=== PATIENT | male | born 1960 | race Hispanic/Latino ===

== ENCOUNTER 2019-10-14 07:39 | Emergency (ER) | payer SELFPAY ==
[2019-10-14] MEDS ORDERED: ZIPRASIDONE MESYLATE 20 MG VIAL IM ONE ×2 (13:44→14:26)
[2019-10-14] MEDS ORDERED: LORazepam 2 MG/ML VIAL ONE (13:45)
--- NOTE | 2019-10-14 14:04 | Emergency Department Report ---
ED Psych HPI - General Chief Complaint: Psych Stated Complaint: MH EVAL Time Seen by Provider: 10/14/19 13:44 Source: patient Mode of arrival: Ambulatory - History of Present Illness Initial Comments: 59-year-old male brought in by police for evaluation. Patient was apparently t hreatening his roommate. Patient is aggressive and yelling, stating "Stop asking me dumbass questions!" He denies SI and HI. Unable to obtain any other information from this patient. MD Complaint: other -: This morning Treatments Prior to Arrival: none - Related Data Home Medications Medication Instructions Recorded Confirmed Last Taken No Known Home Medications [No 10/15/19 10/15/19 Unknown Reported Home Medications] Allergies Allergy/AdvReac Type Severity Reaction Status Date / Time No Known Allergies Allergy Unverified 10/14/19 08:36 ED Review of Systems ROS: Stated complaint: MH EVAL Other details as noted in HPI Comment: Unobtainable due to pts medical conditions ED Past Medical Hx - Medications Home Medications: Home Medications Medication Instructions Recorded Confirmed Last Taken Type No Known Home Medications [No 10/15/19 10/15/19 Unknown History Reported Home Medications] ED Physical Exam - General Limitations: No Limitations General appearance: alert - Head Head exam: Present: atraumatic, normocephalic - Eye Eye exam: Present: normal appearance - ENT ENT exam: Present: mucous membranes moist - Neck Neck exam: Present: normal inspection - Respiratory Respiratory exam: Present: normal lung sounds bilaterally. Absent: respiratory distress - Cardiovascular Cardiovascular Exam: Present: normal rhythm, tachycardia - GI/Abdominal GI/Abdominal exam: Absent: distended - Extremities Exam Extremities exam: Present: normal inspection - Neurological Exam Neurological exam: Present: alert - Psychiatric Psychiatric exam: Present: agitated - Skin Skin exam: Present: warm, dry, intact, normal color ED Course Vital Signs 10/14/19 10/14/19 10/14/19 08:31 08:39 15:12 Temperature 98.9 F 98.9 F Pulse Rate 113 H 115 H 65 Respiratory 18 18 16 Rate Blood Pressure 223/138 Blood Pressure 224/113 116/63 [Right] O2 Sat by Pulse 100 100 100 Oximetry 10/14/19 10/14/19 10/15/19 17:34 20:13 02:00 Temperature 98.1 F 97.2 F L Pulse Rate 56 L 62 57 L Respiratory 17 16 16 Rate Blood Pressure Blood Pressure 152/74 145/82 135/63 [Right] O2 Sat by Pulse 96 97 97 Oximetry 10/15/19 10/15/19 10/15/19 09:24 09:28 12:43 Temperature 97.6 F 97.6 F Pulse Rate 71 76 Respiratory 20 18 18 Rate Blood Pressure 158/91 Blood Pressure 158/91 [Right] O2 Sat by Pulse 99 100 Oximetry 10/15/19 10/15/19 10/15/19 17:17 21:08 21:11 Temperature 98.3 F 97.6 F Pulse Rate 78 91 H Respiratory 18 16 16 Rate Blood Pressure Blood Pressure 140/86 169/101 [Right] O2 Sat by Pulse 99 100 Oximetry 10/16/19 10/16/19 10/16/19 01:15 08:01 14:26 Temperature 97.5 F L 98.4 F 97.8 F Pulse Rate 72 74 81 Respiratory 18 18 20 Rate Blood Pressure Blood Pressure 166/90 152/91 149/94 [Right] O2 Sat by Pulse 100 98 100 Oximetry 10/16/19 10/17/19 10/17/19 19:45 01:30 08:08 Temperature 97.9 F 97.9 F 98.3 F Pulse Rate 65 66 56 L Respiratory 18 18 18 Rate Blood Pressure Blood Pressure 145/76 138/77 164/86 [Right] O2 Sat by Pulse 100 100 99 Oximetry 10/17/19 10/18/19 10/18/19 16:04 01:52 07:55 Temperature 97.5 F L 98.2 F 98.4 F Pulse Rate 67 64 76 Respiratory 20 18 20 Rate Blood Pressure Blood Pressure 164/98 145/82 145/102 [Right] O2 Sat by Pulse 100 99 99 Oximetry 10/18/19 10/18/19 09:16 20:00 Temperature 98.8 F Pulse Rate 75 Respiratory 18 16 Rate Blood Pressure Blood Pressure 139/77 [Right] O2 Sat by Pulse 95 100 Oximetry ED Medical Decision Making - Lab Data Result diagrams: 10/14/19 14:02 10/16/19 12:57 - EKG Data -: EKG Interpreted by Mi EKG shows normal: sinus rhythm, axis, intervals, QRS complexes Rate: normal - EKG Data Interpretation: other (T wave inversions inferolateral leads) - Medical Decision Making Pt medically clear for mental health evaluation. Critical care attestation.: If time is entered above; I have spent that time in minutes in the direct care of this critically ill patient, excluding procedure time. ED Disposition Clinical Impression: Schizoaffective disorder Disposition: [id number]/[facility]-65 PSY HOSP/PSY UNIT Is pt being admited?: No Condition: Stable Referrals: PRIMARY CARE, [Primary Care Provider] - 3-5 Days
[2019-10-14] MEDS ORDERED: LORazepam 2 MG/ML VIAL IM ONE (14:27)
[2019-10-14 14:34] LABS: Basophils % (Auto) 0.3 % (0.0-1.8); Eosinophils % (Auto) 0.3 % (0.0-4.3); Hematocrit 41.1 % (35.5-45.6); Hemoglobin 13.1 gm/dl (11.8-15.2); Lymphocytes # (Auto) 1.7 K/mm3 (1.2-5.4); Lymphocytes % (Auto) 24.7 % (13.4-35.0); Mean Corpuscular HGB Conc 32 % (32-34); Mean Corpuscular Volume 81 fl (84-94); Monocytes # (Auto) 0.5 K/mm3 (0.0-0.8); Monocytes % (Auto) 7.3 % (0.0-7.3); Platelet Count 463 K/mm3 (140-440); Red Blood Count 5.06 M/mm3 (3.65-5.03); Red Cell Distribution Width 14.9 % (13.2-15.2)
[2019-10-14] MEDS ORDERED: POTASSIUM CHLORIDE ER 20 MEQ TAB PO ONE (15:26)
[2019-10-15] MEDS ORDERED: ZIPRASIDONE MESYLATE 20 MG VIAL IM ONE ×2 (11:34→11:35)
[2019-10-15] MEDS ORDERED: POTASSIUM CHLORIDE ER 20 MEQ TAB PO ONE (12:32)
--- NOTE | 2019-10-15 14:46 | Consultation ---
History of Present Illness - Reason for Consult Consult date: 10/15/19 Reason for consult: MHE Requesting physician: DEBORAH LOERA - Chief Complaint Chief complaint: Aggression - History of Present Psychiatric Illness Per ED Provider: 59-year-old male brought in by police for evaluation. Patient was apparently threatening his roommate. Patient is aggressive and yelling, stating "Stop asking me dumbass questions!" He denies SI and HI. Unable to obtain any other information from this patient. PSYCH HPI Patient is a 39 year old homeless, unemployed and single Male who is denying a past psychiatric history and has no known past medical history presents today to the ER by the PD for wandering. Pt says he was unaware of events leading him here, says he does not even know what type of facility this is. Patients endorses hearing voices with no specific detail as to what he hears but says he is not hearing any at the moment. 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 He reports loosing mum and sister some years ago and had tried to commit suicide at that time but none since then. Patient describes mood today as "I dont know", denies SI or HI. PAST PSYCHIATRIC HISTORY unable to complete exam due to mental state PAST MEDICAL HISTORY: unable to complete exam due to mental state Family Psychiatric History: None reported or documented SOCIAL HISTORY unable to complete exam due to mental state REVIEW OF SYSTEMS unable to complete exam due to mental state MENTAL STATUS EXAMINATION General Appearance and Behavior: Age appropriate, good hygiene, wearing appropriate clothes,poor eye contact, uncooperative and irritable with questioning. Cooperation: withdrawn and irritated Psychomotor Behavior: psychomotor agitation Mood: n/a Affect and affective range: angry, aggressive Thought Process: Fluent/Logical Thought Content: word salads, loose association Speech: rambling, Intellectual Functioning: Average Suicidal Ideation: Denies Homicidal Ideation: Denies Impulse Control: impaired Insight and Judgment: Poor insight and judgment Memory: Unaccesible Attention: Normal Orientation: Alert, oriented RECOMMENDATIONS MEDICATIONS: continue home meds Risks, benefits and alternatives of medications discussed with the patient, questions answered and consent obtained from patient. PSYCHOTHERAPY: Supportive psychotherapy provided MEDICAL: Per primary team. DELIRIUM PRECAUTIONS: Please re-orient patient frequently, keep lights on during the day, and minimize benzodiazepines and opiates as these medications could worsen patient's confusion. STNA: Per medical team DISPOSITION: no indication for acute inpatient psychiatric hospitalization at this time, will observe for mood stability. LEGAL STATUS: 1013 FOLLOW-UP: Will follow Thank you for the consult. Please contact with any questions and/or concerns. Medications and Allergies Allergies Allergy/AdvReac Type Severity Reaction Status Date / Time No Known Allergies Allergy Unverified 10/14/19 08:36 Home Medications Medication Instructions Recorded Confirmed Last Taken Type No Known Home Medications [No 10/15/19 10/15/19 Unknown History Reported Home Medications] Mental Status Exam - Vital signs Last Vital Signs Temp 97.6 F 10/15/19 12:43 Pulse 76 10/15/19 12:43 Resp 18 10/15/19 12:43 BP 158/91 10/15/19 12:43 Pulse Ox 100 10/15/19 12:43 Results Result Diagrams: 10/14/19 14:02 10/14/19 14:02 Abnormal lab results 10/14/19 10/14/19 Range/Units 14:02 14:02 Salicylates < 0.3 L (2.8-20.0) mg/dL Acetaminophen < 5.0 L (10.0-30.0) ug/mL All other labs normal.
[2019-10-15] MEDS ORDERED: risperiDONE 0.25 MG TAB PO SCH (15:00)
[2019-10-15 15:02] LABS: Bilirubin,Urine NEG (Negative); Blood,Urine NEG (Negative); Color,Urine Colorless (Yellow); Protein,Urine <15 mg/dL mg/dL (Negative); RBC,Urine < 1.0 /HPF (0.0-6.0); Urobilinogen,Urine < 2.0 mg/dL (<2.0)
[2019-10-15 15:17] LABS: Amphetamine Screen,Urine PRESUMPTIVE NEGATIVE; Benzodiazepines Screen,Urine PRESUMPTIVE NEGATIVE; Cannabinoid Screen,Urine PRESUMPTIVE NEGATIVE; Cocaine Screen,Urine PRESUMPTIVE NEGATIVE; Methadone Screen,Urine PRESUMPTIVE NEGATIVE; Opiate Screen,Urine PRESUMPTIVE NEGATIVE
[2019-10-15] MEDS: risperiDONE 1 MG TAB PO SCH ×2 (15:52→22:26)
[2019-10-16] MEDS ORDERED: POTASSIUM CHLORIDE ER 20 MEQ TAB PO ONE (09:22)
[2019-10-16] MEDS: risperiDONE 1 MG TAB PO SCH (09:56)
[2019-10-16] MEDS ORDERED: LORazepam 2 MG/ML VIAL IM ONE (11:57)
[2019-10-16] MEDS ORDERED: ZIPRASIDONE MESYLATE 20 MG VIAL IM ONE (11:57)
[2019-10-16 13:44] LABS: BUN/Creatinine Ratio 10; Blood Urea Nitrogen 12 mg/dL (9-20); Calcium 9.5 mg/dL (8.4-10.2); Hemolysis Index 120
--- NOTE | 2019-10-16 14:13 | Cat Scan Report ---
CT head/brain wo con INDICATION / CLINICAL INFORMATION: 59 years Male; AMS. TECHNIQUE: Routine CT head without contrast. All CT scans at this location are performed using CT dos e reduction for ALARA by means of automated exposure control. COMPARISON: None. FINDINGS: BRAIN / INTRACRANIAL CONTENTS: The motion degrades image quality. 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 More focal findings are seen p osteriorly on the right. There appears be mild cerebral white matter disease most consistent with microvascular angiopathy. Th e motion obscures evaluation of the vertex at. However, there is mild cerebral atrophy with associate d mild prominence of the ventricular system. There is no definitive CT evidence of acute intracranial hemorrhage involving the visualized brain. ORBITS: No significant abnormality of visualized orbits. SINUSES / MASTOIDS: No significant abnormality in the visualized paranasal sinuses or mastoid air james ls. CRANIOCERVICAL JUNCTION: No significant abnormality. ADDITIONAL FINDINGS: None. IMPRESSION: 1. The motion degrades image quality. 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 2. There is no definitive CT evidence of acute intracranial hemorrhage. Signer Name: Jarvis Ta MD Signed: 10/16/2019 2:08 PM Workstation Name: [id number]
[2019-10-16] MEDS ORDERED: PALIPERIDONE PALMITATE 234 MG/1.5 ML SYRINGE IM ONE (15:38)
--- NOTE | 2019-10-16 15:39 | Progress Note ---
Subjective - Reason for Consult Consult date: 10/16/19 Reason for consult: MHE Requesting physician: DEBORAH LOERA - Chief Complaint Chief complaint: Psych Progress Patient seen today, awake, angry and refuses to let blood be drawn to recheck potassium. Patient is incoherent, disorganized with rambling speech REVIEW OF SYSTEMS unable to complete exam due to mental state MENTAL STATUS EXAMINATION General Appearance and Behavior: Age appropriate, good hygiene, wearing appropriate clothes,poor eye contact, uncooperative and irritable with questio hu. Cooperation: withdrawn and irritated Psychomotor Behavior: psychomotor agitation Mood: n/a Affect and affective range: angry, aggressive Thought Process: Fluent/Logical Thought Content: word salads, loose association Speech: rambling, Intellectual Functioning: Average Suicidal Ideation: Denies Homicidal Ideation: Denies Impulse Control: impaired Insight and Judgment: Poor insight and judgment Memory: Unaccesible Attention: Normal Orientation: Alert, oriented RECOMMENDATIONS MEDICATIONS: continue current meds. Will start on Invega shot today Risks, benefits and alternatives of medications discussed with the patient, questions answered and consent obtained from patient. PSYCHOTHERAPY: Supportive psychotherapy provided MEDICAL: Per primary team. DELIRIUM PRECAUTIONS: Please re-orient patient frequently, keep lights on during the day, and minimize benzodiazepines and opiates as these medications could worsen patient's confusion. 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 LEGAL STATUS: 1013 FOLLOW-UP: Will follow Thank you for the consult. Please contact with any questions and/or concerns. Mental Status Exam - Vital signs Last Vital Signs Temp 97.8 F 10/16/19 14:26 Pulse 81 10/16/19 14:26 Resp 20 10/16/19 14:26 BP 149/94 10/16/19 14:26 Pulse Ox 100 10/16/19 14:26
[2019-10-16] MEDS ORDERED: metFORMIN 500 MG TAB ONE (17:46)
[2019-10-16] MEDS: VALPROIC ACID 250 MG/5 ML ORAL LIQD PO SCH ×2 (18:13→22:51)
--- NOTE | 2019-10-17 13:17 | Progress Note ---
Subjective - Reason for Consult Consult date: 10/17/19 Reason for consult: MHE Requesting physician: DEBORAH LOERA - Chief Complaint Chief complaint: Psych Progress Patient appears calm today after been started on Invega yesterday, says he allowed blood to drawn, admits to being angry yesterday and does not know why, denies anger at the moment. Patient states he wants the next food, wants to know the time, still a disorganized but calm REVIEW OF SYSTEMS unable to complete exam due to mental state MENTAL STATUS EXAMINATION General Appearance and Behavior: Age appropriate, good hygiene, wearing appropriate clothes, fair eye contact, cooperative and polite with questioning. Cooperation: Engaged but slightly withdrawn Psychomotor Behavior: No psychomotor agitation Mood: n/a Affect and affective range: angry, aggressive Thought Process: Fluent/Logical Thought Content: word salads, loose association Speech: rambling, Intellectual Functioning: Average Suicidal Ideation: Denies Homicidal Ideation: Denies Impulse Control: impaired Insight and Judgment: Poor insight and judgment Memory: Unaccessible Attention: Normal Orientation: Alert, oriented RECOMMENDATIONS MEDICATIONS: continue current meds. STARTED ON INVEGA ON 10/17/2019 Risks, benefits and alternatives of medications discussed with the patient, questions answered and consent obtained from patient. PSYCHOTHERAPY: Supportive psychotherapy provided MEDICAL: Per primary team. DELIRIUM PRECAUTIONS: Please re-orient patient frequently, keep lights on during the day, and minimize benzodiazepines and opiates as these medications could worsen patient's confusion. 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 LEGAL STATUS: 1013 FOLLOW-UP: Will follow Thank you for the consult. Please contact with any questions and/or concerns. Mental Status Exam - Vital signs Last Vital Signs Temp 98.3 F 10/17/19 08:08 Pulse 56 L 10/17/19 08:08 Resp 18 10/17/19 08:08 BP 164/86 10/17/19 08:08 Pulse Ox 99 10/17/19 08:08
[2019-10-17] MEDS: VALPROIC ACID 250 MG/5 ML ORAL LIQD PO SCH ×2 (13:36→22:55)
[2019-10-17] MEDS ORDERED: amLODIPine 5 MG TAB PO ONE (18:03)
[2019-10-18] MEDS: VALPROIC ACID 250 MG/5 ML ORAL LIQD PO SCH ×3 (10:05→22:03)
--- NOTE | 2019-10-18 13:48 | Progress Note ---
Subjective - Reason for Consult Consult date: 10/18/19 Reason for consult: threatening roommate - Chief Complaint Chief complaint: During my interview with the patient today, he was quite avoidant. He seemed irritable. He kept his back to me. He is a/ox 1. His thinking is disorganized. 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 He denies SI/HI. He also denies hallucinations of any kind. He states, "I've been taking care of myself since I was 10." He then turns and looks at me and says, "I built this place." REVIEW OF SYSTEMS unable to complete exam due to mental state MENTAL STATUS EXAMINATION General Appearance: Dressed appropriate Behavior: Avoidant. Poor eye contact Mood: Affect: Thought Process: Disorganized Speech: Normal tone and pace Thought Content Suicidal Ideation: Denies Homicidal Ideation: Denies Hallucinations: Denies Delusions: None elicited Insight and Judgment: Impaired Memory/Cognition: Impaired Assessment Schizoaffective Disorder RECOMMENDATIONS MEDICATIONS: STARTED ON INVEGA ON 10/17/2019 Increased Valproic liquid 500mg po BID Risks, benefits and alternatives of medications discussed with the patient, questions answered and consent obtained from patient. PSYCHOTHERAPY: Supportive psychotherapy provided MEDICAL: Per primary team. DELIRIUM PRECAUTIONS: Please re-orient patient frequently, keep lights on during the day, and minimize benzodiazepines and opiates as these medications could worsen patient's confusion. 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 FOLLOW-UP: Will follow Thank you for the consult. Please contact with any questions and/or concerns. Mental Status Exam - Vital signs Last Vital Signs Temp 98.4 F 10/18/19 07:55 Pulse 76 10/18/19 07:55 Resp 18 10/18/19 09:16 BP 145/102 10/18/19 07:55 Pulse Ox 95 10/18/19 09:16
[2019-10-18 20:17] VITALS: BP 139/77
== END 2019-10-19 00:40 ==
LOC: EEVIPCON 07:39 → ED 07:39
DX: F25.8 Other schizoaffective disorders (principal); Z79.899 Other long term (current) drug therapy
CPT/HCPCS: 36415; 70450; 80048; 80307; 81001; 84484; 85025; 93005; 96372; 99285; J2060; J3486; 80320; G0480